=== PATIENT | female | born 1935 | race Caucasian/White ===

== ENCOUNTER → 2017-01-26 | Outpatient (CLI) | payer MEDICARE ==
[~2017-01-26] MED LIST: ASPIRIN 81M81 MG/TA2 PO; EPA/GLA1 SGL PO; FOSAMAX 70MG TA70 MG PO; LEVOTHYROXINE PO; MULTIPLE VITAMI1 CAP PO; NORCO 325 MG-51 TAB PO; NORCO 325 MG-7.1 TAB PO; VITAMIN D31000 IU PO; ZOCOR 20MG20 MG PO; ZOCOR5 MG PO
== END ==
LOC: MC.RAD 10:00
DX: Z12.31 Encounter for screening mammogram for malignant neoplasm of breast (principal)

== ENCOUNTER → 2018-01-31 | Outpatient (CLI) | payer MEDICARE | LOC: MC.RAD 11:04 | DX: Z12.31 Encounter for screening mammogram for malignant neoplasm of breast (principal); Z92.3 Personal history of irradiation ==

== ENCOUNTER → 2019-02-02 | Outpatient (CLI) | payer MEDICARE | LOC: MC.RAD 07:15 | DX: Z12.31 Encounter for screening mammogram for malignant neoplasm of breast (principal) ==

== ENCOUNTER → 2019-02-09 | Outpatient (CLI) | payer MEDICARE | LOC: MC.RAD 10:40 | DX: R92.8 Other abnormal and inconclusive findings on diagnostic imaging of breast (principal) | CPT/HCPCS: G0279 ==

== ENCOUNTER → 2020-02-15 | Outpatient (CLI) | payer MEDICARE | LOC: MC.RAD 08:54 | DX: Z12.31 Encounter for screening mammogram for malignant neoplasm of breast (principal) ==

== ENCOUNTER 2020-05-29 09:05 | Outpatient (CLI) | payer MEDICARE ==
[2020-05-29] VITALS (16 sets, daily range): BP systolic 120–177; BP diastolic 60–81; PULSE 57–72
[~2020-05-29] VITALS: Ht 162.6 cm; Wt 70.6 kg
[~2020-05-29 09:05] MED LIST changes: +CALCIUM CARBON650 M2 PO; +CALCIUM-MAGNES1 EAC1 PO; +COZAAR 50MG50 MG/TAB PO; +EPA FISH OIL1 SGL PO; -EPA/GLA1 SGL PO; -LEVOTHYROXINE PO; +MULTIPLE VITAMI1 TA5 PO; +SYNTHROID0.1 MG/TAB PO; +VITAMIN C500 MG PO
--- NOTE | 2020-05-29 10:35 | NUR ---
pt to ct per ambulation. Monitors applied. O2 on. Pt positioned in supine position.
--- NOTE | 2020-05-29 10:45 | NUR ---
Dr Mendosa and Dr Rodriguez into look at films.
--- NOTE | 2020-05-29 11:00 | NUR ---
Pt repositioned to prone per doctors request.
--- NOTE | 2020-05-29 12:45 | NUR ---
Pt ready for discharge per Dr. Mendosa. Pt doing well without any complaints at this time. ls are clear bilat. no pain reported. pt ambulatory in unit with steady gait. iv dc'd with cath intact. I reviewed dc instructions with pt who denied any questions. pt is escorted to exit via wheelchair.
== END 2020-05-29 13:17 | disposition home or self-care (01) ==
LOC: COL.RAD 09:05
DX: R91.8 Other nonspecific abnormal finding of lung field (principal); Z85.118 Personal history of other malignant neoplasm of bronchus and lung
CPT/HCPCS: J2250; J3010

== ENCOUNTER → 2021-02-25 | Outpatient (CLI) | payer MEDICARE ==
[~2021-02-25] MED LIST changes: +ANUSOL HC CREAM30 GM TP; +NITROSTAT0.4 MG/TAB SL; +OS-CAL 500 + D1 TAB PO
== END ==
LOC: MC.RAD 10:15
DX: Z12.31 Encounter for screening mammogram for malignant neoplasm of breast (principal)

== ENCOUNTER → 2021-02-26 | Outpatient (CLI) | payer MEDICARE | LOC: MC.RAD 10:51 | DX: Z12.31 Encounter for screening mammogram for malignant neoplasm of breast (principal) ==

== ENCOUNTER → 2021-03-31 | Outpatient (CLI) | payer MEDICARE | LOC: COL.RAD 08:44 | DX: K57.92 Diverticulitis of intestine, part unspecified, without perforation or abscess without bleeding (principal) ==

== ENCOUNTER → 2021-04-08 | Outpatient (CLI) | payer MEDICARE | LOC: COL.RAD 04-07 09:30 | DX: K57.32 Diverticulitis of large intestine without perforation or abscess without bleeding (principal); K57.92 Diverticulitis of intestine, part unspecified, without perforation or abscess without bleeding ==

== ENCOUNTER 2021-05-12 14:39 | Outpatient (CLI) | payer MEDICARE ==
[~2021-05-12] VITALS: Ht 162.6 cm; Wt 61.3 kg
[2021-05-12] VITALS (8 sets, daily range): BP systolic 134–158; BP diastolic 59–73; PULSE 60–70; TEMP 96.8
[~2021-05-12 14:39] MED LIST changes: -ANUSOL HC CREAM30 GM TP; -NITROSTAT0.4 MG/TAB SL; -OS-CAL 500 + D1 TAB PO
[2021-05-12] MEDS ORDERED: OS-CAL 500 + D1 TAB PO (14:47)
[2021-05-12] MEDS ORDERED: NITROSTAT0.4 MG/TAB SL (14:48)
[2021-05-12] MEDS ORDERED: ANUSOL HC CREAM30 GM TP (14:50)
--- NOTE | 2021-05-12 16:35 | NUR ---
Pt tolerated infusion and 1 hr obs period without issue. INT DC'd and pt was escorted out to ED entrance.
== END 2021-05-12 16:35 | disposition home or self-care (01) ==
LOC: EUO 14:39
DX: U07.1 COVID-19 (principal)
CPT/HCPCS: M0243; Q0244

== ENCOUNTER 2021-08-02 23:07 | Inpatient (IN) | payer MEDICARE ==
[~2021-08-02] VITALS: Ht 162.6 cm; Wt 61.9 kg
[~2021-08-02 23:07] MED LIST changes: +ANUSOL HC CREAM30 GM TP; +NITROSTAT0.4 MG/TAB SL; +OS-CAL 500 + D1 TAB PO
[2021-08-03] VITALS (13 sets, daily range): BP systolic 113–166; BP diastolic 42–65; PULSE 53–71; TEMP 97.5–98.1
[2021-08-03] MEDS ORDERED: MASON NATURAL2000 IU PO (00:08)
[2021-08-03 00:10] LABS: COLLECTION METHOD CATHETER
[2021-08-03] MEDS ORDERED: GALZIN50 MG PO (00:10)
[2021-08-03] MEDS ORDERED: MAGNESIUM (00:10)
[2021-08-03] MEDS ORDERED: CALCIUM (00:10)
[2021-08-03] MEDS ORDERED: MAG-OX 400400 MG/TAB PO (00:11)
[2021-08-03] MEDS ORDERED: VITAMIN B COMPL1 SGL PO (00:11)
[2021-08-03 00:13] LABS: BASO % 0.4 % (0.0-2.0); EOS # 0.1 K/mm3 (0.0-0.7); EOS % 1.7 % (0.0-4.0); GRAN # 6.1 K/mm3 (1.4-6.5); GRAN % 75.3 % (42.2-75.2); HEMOGLOBIN 11.8 g/dl (12.5-16.0); LYMPH # 1.2 K/mm3 (1.2-3.4); LYMPH % 14.4 % (20.0-51.0); MEAN CELL VOLUME 90 fl (80.0-100.0); MEAN CORPUSCULAR HEMOGLOBIN 29 pg (27-31); MEAN CORPUSCULAR HGB CONC 32 g/dl (33.0-37.0); MEAN PLATELET VOLUME 8.8 fl (7.4-10.4); MONO # 0.6 K/mm3 (0.1-0.6); MONO % 7.6 % (1.7-9.3); PLATELET COUNT 189 K/mm3 (130-400); RED BLOOD COUNT 4.08 M/mm3 (4.10-5.30); REDCELL DISTRIBUTION WIDTH-CV 13.6 % (11.5-14.5)
[2021-08-03 00:14] LABS: HEMATOCRIT 36.5 % (37.0-47.0)
[2021-08-03 00:15] LABS: PH 7 (5-8); SQUAMOUS EPITHELIAL None Seen /hpf (0-10); URINE APPEARANCE Clear (CLEAR/HAZY); URINE BACTERIA None Seen /hpf (NONE SEEN); URINE BILIRUBIN Negative (NEGATIVE); URINE BLOOD Negative (NEGATIVE); URINE COLOR Straw (YELLOW); URINE GLUCOSE Negative (NEGATIVE); URINE KETONE Negative (NEGATIVE); URINE LEUKOCYTE ESTERASE Negative (NEGATIVE); URINE NITRATE Negative (NEGATIVE); URINE PROTEIN(semi-quant) Negative (NEGATIVE); URINE RBC 0-2 /hpf (0-2); URINE UROBILINOGEN Negative (NEGATIVE)
[2021-08-03 00:30] LABS: ALANINE AMINOTRANSFERASE 8 U/L (0-55); ALBUMIN 3.5 gm/dL (3.4-4.8); ALKALINE PHOSPHATASE 80 U/L (40-150); ANION GAP 11 mmol/L (7-16); AST,SGOT 18 U/L (5-34); BLOOD UREA NITROGEN 29 mg/dL (10-20); CALCIUM 9.6 mg/dL (8.4-10.2); CARBON DIOXIDE 26 mmol/L (23-31); CHLORIDE 102 mmol/L (98-107); GLUCOSE 105 mg/dL (70-99); POTASSIUM 4.2 mmol/L (3.5-4.5); SODIUM 139 mmol/L (136-145); TOTAL PROTEIN 6.6 gm/dL (6.2-8.1)
[2021-08-03 00:38] LABS: INR 1.1 (0.8-3.0); PROTHROMBIN TIME 11.8 SECONDS (9.7-12.8)
[2021-08-03 00:41] LABS: BILIRUBIN,TOTAL < 0.5 mg/dL (0.2-1.2)
--- NOTE | 2021-08-03 01:51 | NUR ---
Almaz ALEXANDER CALLED ET NOTIFIED OF PT CONSULT. PT ARRIVES VIA ER CART, TRANSFERRED TO BED WITH 3 ASSIST ET SLIDE BOARD. PT YELLS OUT IN PAIN WHEN MOVED, STATES THAT PAIN INCREASED TO 7. PT QUICKLY CALMS DOWN ET IS PLEASANT, A&O X3. SCD APPLIED TO UNAFFECTED LEG. RIBERA CATHETER DRAINING DEPENDENTLY. PT EDUCATED ON FALL PRECAUTIONS, CALL LIGHT ET NPO ORDER. PT VERBALIZES UNDERSTANDING, DENIES OTHER NEEDS. PT TURNS TV ON, CALL LIGHT IS WITHIN REACH.
--- NOTE | 2021-08-03 09:30 | NUR ---
Ortho Dr Epperson have been in to see pt. Pt is cleared for surgery. Edilberto notified. Pt states that her hip is not too bad at this time, but her back is bothering her. Repositioned slightly, pain medication given. Pts is at bedside. Pt is aware meliton she will be having surgery this am, consent signed. All other questions answered, call light within reach
--- NOTE | 2021-08-03 10:06 | NUR ---
Pt off the floor for surgery at this time
--- NOTE | 2021-08-03 10:32 | NUR ---
Sw tried to complete intake, pt in surgery.
--- NOTE | 2021-08-03 13:10 | NUR ---
Pt back from surgery. She is drowsy, but does wake easily when spoken to. DRSG x2 to her left hip, CDI, with ice pack in place. Pt at the bedside. Pt has no complaints of pain at this time. She is able to wiggle her feet. Denies wanting anything to eat at this time. Call light within reach
--- NOTE | 2021-08-03 13:55 | NUR ---
Pt continues to do well with no pain complaints. Pt requested to be repositioned to her right side. Assisted at this time and she stated that she was more comfortable this way. No other needs verbalized, will continue to monitor
--- NOTE | 2021-08-03 15:26 | NUR ---
Pt continues to do well with no pain complaints. Pt is resting comfortably, but does wake easily when spoken to. remains at bedside
--- NOTE | 2021-08-03 18:03 | NUR ---
Pt has continued to sleep since arriving back from surgery. She does wake easily, but does fall back asleep. She is tolerating ice water, but does not stay awake long enough to eat anything. Pt reports that her pain is comfortable at this time
--- NOTE | 2021-08-03 20:35 | NUR ---
PT SITTING UP IN BED EATING SANDWICH ET COOKIE. PT HAS TOLERATED CLEAR LIQUIDS WELL WITH NO NAUSEA, DIET WAS ADVANCED. PT WAS GIVEN PAIN MEDICATION EARLIER ET STATES THAT SHE NOW HAS NO PAIN @ REST. PT IS ALERT, ORIENTED TO PLACE ET REASON FOR HOSPITALIZATION BUT STATES THAT SHE DOES NOT REMEMBER HAVING SURGERY. DRESSING IN PLACE TO LEFT HIP, FRESH ICE PACK APPLIED. OXYGEN ON @ 1L VIA NC, RESPIRATIONS UNLABORED. BED ALARM ON, CALL LIGHT WITHIN REACH.
--- NOTE | 2021-08-04 05:47 | NUR ---
PT'S OXYGEN VIA NC IS TAKEN OFF, WAS ON 1L. OXYGEN SATS MAINTAIN @ 96% ON RA. PT DENIES PAIN IN HER LEFT LEG BUT STATES THAT SHE IS HAVING PAIN IN HER STOMACH ET POINTS TO HER UPPER EPIGASTRIC AREA. PT STATES SHE HAS THIS PAIN FREQUENTLY. WHEN ASKED HOW LONG THIS HAS BEEN HAPPENING, PT STATES "A WHILE". PT ALSO HAS BELCHING WITH THIS PAIN. PT ENCOURAGED TO DRINK WATER. DENIES OTHER NEEDS, RESPIRATIONS UNLABORED. BED ALARM ON, CALL LIGHT WITHIN REACH.
[2021-08-04 06:24] LABS: HEMOGLOBIN 11.1 g/dl (12.5-16.0)
[2021-08-04 06:26] LABS: HEMATOCRIT 35.3 % (37.0-47.0)
[2021-08-04 08:28] VITALS: BP 145/48; PULSE 70; TEMP 97.7
--- NOTE | 2021-08-04 10:31 | NUR ---
HUGH met with the patient to discuss discharge plan. The patient lives in [place] with her , Mingo (h.ph#[phone], c.ph#[phone]). She reports independence with ADLs and does not have any DME. The patient's PCP is Dr. Michael Pinto at [facility] and she receives her medications through [employer] The patient does not have a DPOA-HC in EMR, but she states that she does have one completed and that she designated her son, Jhonny. She states that [facility] may have a copy of the document. HUGH attempted to contact Dona, aids social worker, at [facility] to inquire if they have a copy. HUGH left her a voicemail. The patient had a hip fracture and had surgery yesterday. HUGH discussed post-acute rehab upon discharge. The patient reports that her has to go up to [facility] for outpatient therapy, so she would prefer their swing bed. She did not have a second preference at this time and states that she needs some time to think about it and talk to her . HUGH then contacted Cecilia at [facility]. Cecilia reports that they are full and not taking any admissions. She recommended that the patient look at a different facility. HUGH met with the patient and updated her on this. HUGH provided her with Medicare.gov's list of SNFs around the [place] area. The patient reports that she has heard good things about [facility] and was agreeable for HUGH to send a referral to [facility]. She would stil like to be able to talk to her about the other facilities. HUGH contacted and faxed a referral to Diamond at [facility]. Awaiting screen. *Discharge plan: post-acute rehab. Awaiting acceptance*
--- NOTE | 2021-08-04 11:20 | NUR ---
PATIENT ASSESSMENT PERFORMED. PATIENT ALERT AND ORIENTED X3 AND EXHIBITING SOME FORGETFULLNESS. PATIENT GIVEN MORNING MEDICATIONS. PATIENT STATES PAIN IS AT 6/10. PATIENT GIVEN NORCO AT 0845. PATIENT'S SURGICAL SITES ARE CLEAN AND COVERED WITH GAUZE. ICE PACK APPLIED. PATIENT'S VSS STABLE.
--- NOTE | 2021-08-04 11:35 | NUR ---
Diamond, at [facility], reports that they are able to accept the patient for a skilled stay.
--- NOTE | 2021-08-04 12:20 | NUR ---
First visit from the technical proposal writer. No needs right now.
[2021-08-04 12:30] VITALS: BP 122/58; PULSE 55; TEMP 97.4
--- NOTE | 2021-08-04 12:50 | NUR ---
SW received the patient's DPOA-HC, via fax. SW placed the document in the patient's chart. The patient's DPOA-HC is her . The alternate is her son, Jhonny.
[2021-08-04 16:11] VITALS: BP 149/58; PULSE 64; TEMP 97.5
--- NOTE | 2021-08-04 17:25 | NUR ---
PATIENT COMPLAINED OF PAIN, RATING IT AT A 10. PATIENT REQUESTED PAIN MEDICATION. PATIENT INFORMED OF THE RIBERA BEING DC'D. PATIENT STATED SHE DID NOT WANT PAIN MEDICATION. PATIENT REQUESTED TYLENOL. GIVEN TYLENOL AT 1600. RIBERA DC'D AT 1600. PATIENT TOLERATED WELL. INSTRUCTED TO CALL FOR HELP TO THE BATHROOM. PATIENT WAS REPOSITIONED AND IS RESTING IN BED WAITING FOR DINNER TO ARRIVE WITH CALL LIGHT NEAR.
--- NOTE | 2021-08-04 19:50 | NUR ---
Bedside shift report received, assumed care for lieutenant shift supervisor. Assessment complete. A&Ox4. Denies pain/nausea/shortness of breath. VS remain stable. Dressing to left hip [id number]. SCD/TEDs bilat. Refusing ice pack. Due to void post barriga removal. Plan of care discussed for this shift to include meds/calling for pain/calling for questions/concerns. Verbalizes understanding. Call light in reach. Will monitor.
[2021-08-04 20:10] VITALS: BP 153/62; PULSE 67; TEMP 97.7
--- NOTE | 2021-08-04 21:44 | NUR ---
Up to bedside commode to void for first time post barriga removal. Voided without difficulty. Will monitor.
[2021-08-05 00:18] VITALS: BP 141/50; PULSE 62; TEMP 97.7
--- NOTE | 2021-08-05 00:30 | NUR ---
Resting eyes closed. No s/s of pain noted.
[2021-08-05 04:29] VITALS: BP 151/56; PULSE 64; TEMP 97.7
[2021-08-05 06:27] LABS: BASO % 0.4 % (0.0-2.0); EOS # 0.2 K/mm3 (0.0-0.7); GRAN % 77.2 % (42.2-75.2); HEMOGLOBIN 10.5 g/dl (12.5-16.0); LYMPH # 0.8 K/mm3 (1.2-3.4); LYMPH % 10.5 % (20.0-51.0); MEAN CELL VOLUME 93 fl (80.0-100.0); MEAN CORPUSCULAR HEMOGLOBIN 29 pg (27-31); MEAN CORPUSCULAR HGB CONC 31 g/dl (33.0-37.0); MEAN PLATELET VOLUME 9.7 fl (7.4-10.4); MONO # 0.7 K/mm3 (0.1-0.6); MONO % 8.5 % (1.7-9.3); PLATELET COUNT 174 K/mm3 (130-400); RED BLOOD COUNT 3.67 M/mm3 (4.10-5.30); REDCELL DISTRIBUTION WIDTH-CV 13.4 % (11.5-14.5)
[2021-08-05 06:36] LABS: HEMATOCRIT 34.1 % (37.0-47.0)
[2021-08-05 06:43] LABS: CREATININE, serum 0.85 mg/dL (0.57-1.11); POTASSIUM 4.3 mmol/L (3.5-4.5)
[2021-08-05] MEDS ORDERED: SENOKOT S 50 MG1 TAB PO (08:07)
[2021-08-05] MEDS ORDERED: DULCOLAX S10 MG/SUPP RC (08:07)
[2021-08-05] MEDS ORDERED: ASPI325T6 PO (08:07)
[2021-08-05] MEDS ORDERED: TYLENOL 500MG500 MG PO (08:07)
[2021-08-05] MEDS ORDERED: OSCAL 500 TAB500 MG PO (08:07)
[2021-08-05 08:41] VITALS: BP 146/80; PULSE 70; TEMP 97.5
[2021-08-05] MEDS ORDERED: IPRATROPIUM BROM3 M1 IH ×2 (08:49)
[2021-08-05] MEDS ORDERED: NATURAL IRON65 MG PO (08:50)
[2021-08-05] MEDS ORDERED: NORCO 325 MG-51 TAB PO (08:52)
--- NOTE | 2021-08-05 09:43 | NUR ---
The clinical team is ready to discharge the patient today. HUGH notified and faxed updates to Diamond at [facility]. Diamond reports that they are able to waive the three midnight rule and accept the patient today and transportation was set up at 1130. HUGH attempted to contact the patient's on both phone numbers. Both numbers went to [facility], but his voicemails had not been set up yet. HUGH was unable to leave a message. HUGH met with the patient and updated her on the above. The patient is agreeable with going to [facility]. She reports that she already let her know and that he is probably on his way to the hospital now, that is why he is not answering his phone. The patient is to discharge today, 08/05, to [facility] for a skilled stay. Transportation was scheduled at 1130, via [facility]. No additional needs at this time.
--- NOTE | 2021-08-05 12:07 | NUR ---
REPORT TO ADEN NASCIMENTO. PT LEFT UNIT WITH [facility].
== END 2021-08-05 11:30 | DRG 482 ==
LOC: COL.ER 23:07 → SURG 08-03 00:27
PROVIDERS: Nurse Practitioner Primary Care; Orthopaedic Surgery; Physician Assistant; ADMIT Internal Medicine
PROC: 0QH734Z Insertion of Internal Fixation Device into Left Upper Femur, Percutaneous Approach (ICD-10-PCS; principal; 2021-08-03 11:30)
DX: S72.142A Displaced intertrochanteric fracture of left femur, initial encounter for closed fracture (principal); I10 Essential (primary) hypertension; E03.9 Hypothyroidism, unspecified; D64.9 Anemia, unspecified; W18.30XA Fall on same level, unspecified, initial encounter; Y93.89 Activity, other specified; Y92.003 Bedroom of unspecified non-institutional (private) residence as the place of occurrence of the external cause; Z20.822 Contact with and (suspected) exposure to COVID-19; Z85.3 Personal history of malignant neoplasm of breast; Z85.118 Personal history of other malignant neoplasm of bronchus and lung; Z87.891 Personal history of nicotine dependence
CPT/HCPCS: 99222-AI; 99232-AI; 99233-AI; 99239; C1713; J0690; J2250; J2270; J2704; J2795; J2920; J7030

== ENCOUNTER 2021-11-23 10:32 | Emergency (ER) | payer MEDICARE ==
[~2021-11-23] VITALS: Ht 165.1 cm; Wt 55.9 kg
[~2021-11-23 10:32] MED LIST changes: +ASPI325T6 PO; +CALCIUM; +DULCOLAX S10 MG/SUPP RC; +GALZIN50 MG PO; +IPRATROPIUM BROM3 M1 IH; +MAG-OX 400400 MG/TAB PO; +MAGNESIUM; +MASON NATURAL2000 IU PO; +NATURAL IRON65 MG PO; +OSCAL 500 TAB500 MG PO; +SENOKOT S 50 MG1 TAB PO; +TYLENOL 500MG500 MG PO; +VITAMIN B COMPL1 SGL PO
[2021-11-23 10:37] VITALS: TEMP 98
[2021-11-23 11:24] LABS: BASO % 0.4 % (0.0-2.0); EOS # 0.1 K/mm3 (0.0-0.7); EOS % 1.1 % (0.0-4.0); GRAN # 7.2 K/mm3 (1.4-6.5); GRAN % 78.7 % (42.2-75.2); HEMOGLOBIN 11.5 g/dl (12.5-16.0); LYMPH # 1.1 K/mm3 (1.2-3.4); LYMPH % 11.8 % (20.0-51.0); MEAN CELL VOLUME 89 fl (80.0-100.0); MEAN CORPUSCULAR HEMOGLOBIN 29 pg (27-31); MEAN CORPUSCULAR HGB CONC 32 g/dl (33.0-37.0); MEAN PLATELET VOLUME 8.7 fl (7.4-10.4); MONO # 0.7 K/mm3 (0.1-0.6); MONO % 7.8 % (1.7-9.3); PLATELET COUNT 242 K/mm3 (130-400); RED BLOOD COUNT 4.01 M/mm3 (4.10-5.30); REDCELL DISTRIBUTION WIDTH-CV 13.5 % (11.5-14.5)
[2021-11-23 11:26] LABS: HEMATOCRIT 35.7 % (37.0-47.0)
[2021-11-23 11:29] LABS: COLLECTION METHOD CLEAN CATCH
[2021-11-23 11:38] LABS: MUCOUS Present (NOT PRESENT); PH 6 (5-8); URINE APPEARANCE Hazy (CLEAR/HAZY); URINE BACTERIA Occasional /hpf (NONE SEEN); URINE BILIRUBIN Negative (NEGATIVE); URINE BLOOD Negative (NEGATIVE); URINE COLOR Yellow (YELLOW); URINE GLUCOSE Negative (NEGATIVE); URINE KETONE Negative (NEGATIVE); URINE LEUKOCYTE ESTERASE 2+ (NEGATIVE); URINE NITRATE Negative (NEGATIVE); URINE PROTEIN(semi-quant) Negative (NEGATIVE); URINE RBC 0-2 /hpf (0-2); URINE UROBILINOGEN Negative (NEGATIVE)
[2021-11-23 11:45] LABS: ALBUMIN 3.2 gm/dL (3.4-4.8); ALKALINE PHOSPHATASE 76 U/L (40-150); ANION GAP 11 mmol/L (7-16); AST,SGOT 12 U/L (5-34); BILIRUBIN,TOTAL 0.6 mg/dL (0.2-1.2); BLOOD UREA NITROGEN 22 mg/dL (10-20); CALCIUM 9.4 mg/dL (8.4-10.2); CARBON DIOXIDE 25 mmol/L (23-31); CHLORIDE 97 mmol/L (98-107); CREATININE, serum 1.11 mg/dL (0.57-1.11); GLUCOSE 94 mg/dL (70-99); POTASSIUM 4.5 mmol/L (3.5-4.5); SODIUM 133 mmol/L (136-145); TOTAL PROTEIN 6.4 gm/dL (6.2-8.1)
[2021-11-23 11:51] LABS: TROPONIN-I 0.012 ng/mL (0.00-0.033)
[2021-11-23 12:03] LABS: ALANINE AMINOTRANSFERASE < 6 U/L (0-55)
[2021-11-23] MEDS ORDERED: CEPHALEXIN500 M1 PO (12:30)
[2021-11-23 12:53] VITALS: BP 126/67; PULSE 56
[2021-11-24] MEDS ORDERED: CLARITIN 1010 MG/TAB PO (16:39)
== END 2021-11-23 12:55 | disposition home or self-care (01) ==
LOC: COL.ER 10:32
PROVIDERS: Emergency Medicine
DX: N39.0 Urinary tract infection, site not specified (principal); E86.0 Dehydration; D64.9 Anemia, unspecified; E87.1 Hypo-osmolality and hyponatremia
CPT/HCPCS: J7040

== ENCOUNTER 2021-11-24 15:22 | Emergency (ER) | payer MEDICARE ==
[~2021-11-24] VITALS: Ht 162.6 cm; Wt 56.4 kg
[~2021-11-24 15:22] MED LIST changes: +CEPHALEXIN500 M1 PO
[2021-11-24 15:29] VITALS: TEMP 97
[2021-11-24 16:03] LABS: BASO % 0.5 % (0.0-2.0); EOS # 0.1 K/mm3 (0.0-0.7); EOS % 0.9 % (0.0-4.0); GRAN # 6.4 K/mm3 (1.4-6.5); HEMATOCRIT 34.8 % (37.0-47.0); HEMOGLOBIN 11.4 g/dl (12.5-16.0); LYMPH # 0.9 K/mm3 (1.2-3.4); LYMPH % 10.8 % (20.0-51.0); MEAN CELL VOLUME 88 fl (80.0-100.0); MEAN CORPUSCULAR HEMOGLOBIN 29 pg (27-31); MEAN CORPUSCULAR HGB CONC 33 g/dl (33.0-37.0); MEAN PLATELET VOLUME 8.4 fl (7.4-10.4); MONO # 0.7 K/mm3 (0.1-0.6); MONO % 8.6 % (1.7-9.3); PLATELET COUNT 223 K/mm3 (130-400); RED BLOOD COUNT 3.97 M/mm3 (4.10-5.30); REDCELL DISTRIBUTION WIDTH-CV 13.7 % (11.5-14.5)
[2021-11-24 16:22] LABS: ALBUMIN 3.2 gm/dL (3.4-4.8); ALKALINE PHOSPHATASE 72 U/L (40-150); ANION GAP 10 mmol/L (7-16); AST,SGOT 11 U/L (5-34); BILIRUBIN,TOTAL 0.5 mg/dL (0.2-1.2); BLOOD UREA NITROGEN 25 mg/dL (10-20); CALCIUM 9.4 mg/dL (8.4-10.2); CARBON DIOXIDE 27 mmol/L (23-31); CHLORIDE 98 mmol/L (98-107); CREATININE, serum 1.39 mg/dL (0.57-1.11); GLUCOSE 100 mg/dL (70-99); POTASSIUM 4.4 mmol/L (3.5-4.5); SODIUM 135 mmol/L (136-145); TOTAL PROTEIN 6.5 gm/dL (6.2-8.1)
[2021-11-24 16:23] LABS: ALANINE AMINOTRANSFERASE < 6 U/L (0-55)
[2021-11-24] MEDS ORDERED: CLARITIN 1010 MG/TAB PO (16:39)
[2021-11-24 17:49] VITALS: BP 152/76; PULSE 60
--- NOTE | 2021-11-25 17:00 | NUR ---
HUGH contacted patient to follow up on ER visit. Patient verbalized that she is "doing fine" since visit but her feels like they need help in the home. She states that they have a follow up appointment with on at 0900. Message left with HUGH Carcamo at PCP office about the patient and to follow up on HH services. Patient was seen in this facility earlier this year and was discharged to [facility] SN[facility]. Patient reports that after discharge from [facility], she didn't go home with HH services. Contact made with [facility] who states that the patient was discharged home with [facility] HH services.
== END 2021-11-24 17:53 | disposition home or self-care (01) ==
LOC: COL.ER 15:22
PROVIDERS: Personal Emergency Response Attendant
DX: E86.0 Dehydration (principal); R03.0 Elevated blood-pressure reading, without diagnosis of hypertension
CPT/HCPCS: J7030

== ENCOUNTER 2021-12-04 12:02 | Observation (INO) | payer MEDICARE ==
[~2021-12-04] VITALS: Ht 162.6 cm; Wt 57.6 kg
[2021-12-04] VITALS (7 sets, daily range): BP systolic 95–180; BP diastolic 49–75; PULSE 49–76; TEMP 97.3–98.7
[~2021-12-04 12:02] MED LIST changes: +CLARITIN 1010 MG/TAB PO
[2021-12-04 12:50] LABS: BASO % 0.5 % (0.0-2.0); EOS # 0.1 K/mm3 (0.0-0.7); EOS % 1.4 % (0.0-4.0); GRAN # 6.1 K/mm3 (1.4-6.5); HEMOGLOBIN 10.8 g/dl (12.5-16.0); LYMPH # 1.4 K/mm3 (1.2-3.4); LYMPH % 17.1 % (20.0-51.0); MEAN CELL VOLUME 88 fl (80.0-100.0); MEAN CORPUSCULAR HEMOGLOBIN 29 pg (27-31); MEAN CORPUSCULAR HGB CONC 33 g/dl (33.0-37.0); MEAN PLATELET VOLUME 8.3 fl (7.4-10.4); MONO # 0.7 K/mm3 (0.1-0.6); MONO % 8.8 % (1.7-9.3); PLATELET COUNT 237 K/mm3 (130-400); RED BLOOD COUNT 3.75 M/mm3 (4.10-5.30)
[2021-12-04 12:52] LABS: HEMATOCRIT 32.9 % (37.0-47.0)
[2021-12-04 13:15] LABS: ALBUMIN 3.2 gm/dL (3.4-4.8); BILIRUBIN,TOTAL 0.5 mg/dL (0.2-1.2); CALCIUM 9.5 mg/dL (8.4-10.2); CREATININE, serum 1.5 mg/dL (0.57-1.11); POTASSIUM 4.6 mmol/L (3.5-4.5); TOTAL PROTEIN 6.2 gm/dL (6.2-8.1)
--- NOTE | 2021-12-04 19:03 | NUR ---
Patient arrived from ED in wheelchair. Ambulated with standby assist to bed. Changed into yellow fall alert wear. Ambulated with staff standby to bathroom and back. Vitals obtained, assessment performed. Patient oriented to room. No complaints of pain. Meal ordered, and patient resting in bed.
[2021-12-04 21:11] LABS: COLLECTION METHOD CLEAN CATCH
[2021-12-04 21:18] LABS: MUCOUS Present (NOT PRESENT); PH 7 (5-8); SQUAMOUS EPITHELIAL None Seen /hpf (0-10); URINE APPEARANCE Clear (CLEAR/HAZY); URINE BACTERIA None Seen /hpf (NONE SEEN); URINE BILIRUBIN Negative (NEGATIVE); URINE BLOOD Negative (NEGATIVE); URINE COLOR Yellow (YELLOW); URINE GLUCOSE Negative (NEGATIVE); URINE KETONE Negative (NEGATIVE); URINE LEUKOCYTE ESTERASE Negative (NEGATIVE); URINE NITRATE Negative (NEGATIVE); URINE PROTEIN(semi-quant) Negative (NEGATIVE); URINE RBC 0-2 /hpf (0-2); URINE UROBILINOGEN Negative (NEGATIVE)
--- NOTE | 2021-12-04 22:58 | NUR ---
PATIENT DENIES ANY DIZZINESS THIS EVENING NS FLUIDS RUNNING AT 125ML/HR. CONTINUES WITH ORTHOSTATICS BID. REMAINS ON TELE SINUS AIXA 49 PATIENT REMAINS ASYMPTOMATIC. UA SENT PENDING RESULTS. PATIENT DENIES ANY PAIN AT THIS TIME. CALL LIGHT WITHIN REACH.
[2021-12-05] VITALS (7 sets, daily range): BP systolic 120–185; BP diastolic 52–73; PULSE 47–103; TEMP 97.3–98.1
--- NOTE | 2021-12-05 05:19 | NUR ---
ASSISTED PATIENT TO BR AROUND 1230AM TOLERATED WELL NO COMPLAINT OF DIZZINESS STEADY GAIT WITH STAND BY ASSIST. UA SENT NEGATIVE PENDING ECHO THIS AM. REMAINS ON TELE SB 50. STARTED ON HEPARIN THIS EVENING FOR VTE. CONTINUING WITH IV FLUIDS. NO C/O PAIN WILL CONTINUE TO MONITOR FOR ANY CHANGES.
--- NOTE | 2021-12-05 07:30 | NUR ---
Patient laying in bed, A&Ox4. VSS. HR Bradycardic, doctor aware. IV CDI. Denies pain and discomfort. Denies dizziness. Call light within reach. Bed alarm on
[2021-12-05 08:23] LABS: CALCIUM 8.9 mg/dL (8.4-10.2); CREATININE, serum 0.97 mg/dL (0.57-1.11); MAGNESIUM 1.9 mg/dL (1.6-2.6); POTASSIUM 4.3 mmol/L (3.5-4.5)
--- NOTE | 2021-12-05 09:10 | NUR ---
SW met with patient to complete intake and discuss discharge plan. Patient states that she lives at home with her Mingo ([phone]) in [place]. Patient states that her daughter is moving in with them soon. According to patient's H&P she has a home health aid, however the patient denies having HH services. Patient reports to being independent with her ADL's and utilizes a cane to assist with mobility. Patient has no home oxygen needs. PCP is Dr. Camargo and she utilizes [facility] for perscription needs. Patient reports that she does have a DPOA-HC established and that her son is listed as her agent. Patient is planning on returning home once medically ready. Discharge plan: Home (pending PT/OT rec's)
[2021-12-05 09:12] LABS: TROPONIN-I 0.012 ng/mL (0.00-0.033); TSH w REFLEX 31.248 uIU/mL (0.350-4.940)
--- NOTE | 2021-12-05 13:45 | NUR ---
SW spoke with the patient about going home with HH for PT,OT, and ST. Patient verbalized " i'll call them when i get home". Informed the patient that we have to faxed her clinical information and orders to the HH agency and they they would call to schedule a time to get out for an evaluation. Patient distraught that she cannot get ahold of her . Attempt made to contact the patients x2 with the patient and was unsuccessful. CLinical information faxed to [facility] as this is the only HH agency that services her area. Discharge plan: Home with
--- NOTE | 2021-12-05 15:37 | NUR ---
HUGH spoke with Santy at [facility] and they are not in contract with the patients insurance. Santy states that we should try [facility]. HUGH call and spoke with Scarlet. Clinical referral faxed to [phone] and was notified that due to staffing they wouldn't be able to get out to see the patient until next week. Patient scheduled to discharge over the weekend. Discharge plan: Home with [facility].
--- NOTE | 2021-12-05 17:55 | NUR ---
Patient sitting up in the recliner, A&Ox3. VSS. IV CDI, fluids infusing. Denies pain and discomfort. Independent with feeds. Call light within reach. Chair alarm on
--- NOTE | 2021-12-05 22:49 | NUR ---
Patient assessed around 1939. Alert and oriented, and able to make needs known. Denies pain and discomfort. Peripheral IV to right AC with IV fluids running per orders. Denies dizzyness at time of assessment. In bed with call light within reach. Bed alarm on.
[2021-12-06 03:55] VITALS: BP 169/57; PULSE 51; TEMP 97.4
--- NOTE | 2021-12-06 05:37 | NUR ---
Patient has been in bed with call light within reach. SBA to the bathroom with walker. Denies dizziness. Continues on IV fluids per orders. In bed with call light within reach. Bed alarm on.
--- NOTE | 2021-12-06 07:42 | NUR ---
PATIENT IV REMOVED, BED LINENS CHANGED, GOWN CHANGED, ALARM TURNED ON AND TELE PATCHES REPLACED.
[2021-12-06 07:56] VITALS: BP 177/63; PULSE 49; TEMP 97.8
--- NOTE | 2021-12-06 08:42 | NUR ---
Patient alert & oriented, flat affect and slightly withdrawn. Patient IV dislodged this morning. Patient cleaned up, gown and linens changed, IV fluids stopped. Some complaints of discomfort on left side, ribs when breathing. Lungs clear. No other complaints of pain. Bed alarm on, tele leads replaced. No edema noted. Plan for discharge home with home health today.
[2021-12-06] MEDS ORDERED: LEVOXYL0.125 MG PO (09:29)
--- NOTE | 2021-12-06 11:46 | NUR ---
Patient dressed self, removed tele, and packed belonging with no assistance from staff or . Discharge instructions reviewed with and patient. [place] thick packets provided to patient. Patient instructed on where they can aquire more, and that all liquids need to be thickend. Home Health services to start wednesday.
--- NOTE | 2021-12-06 13:27 | NUR ---
SW informed that patient woul be discharting on this day. SW informed that patient would be utilize [facility]. SW confirmed information with patient and faxed DC documenation to agency. Agency staff contacted and informed of documentation sent and and of patient dc.
== END 2021-12-06 10:30 | disposition home health service (06) ==
LOC: COL.ER 12:02 → MEDICAL 15:52
PROVIDERS: Personal Emergency Response Attendant; ADMIT Internal Medicine
DX: I95.1 Orthostatic hypotension (principal); N17.9 Acute kidney failure, unspecified; R00.1 Bradycardia, unspecified; R53.1 Weakness; I10 Essential (primary) hypertension; E03.9 Hypothyroidism, unspecified; E46 Unspecified protein-calorie malnutrition; Z79.899 Other long term (current) drug therapy; Z79.890 Hormone replacement therapy
CPT/HCPCS: G0378; J1644; J7030

== ENCOUNTER 2021-12-26 14:08 | Emergency (ER) | payer MEDICARE ==
[~2021-12-26] VITALS: Ht 167.6 cm; Wt 55.9 kg
[~2021-12-26 14:08] MED LIST changes: +LEVOXYL0.125 MG PO
[2021-12-26 14:21] VITALS: TEMP 97.6
[2021-12-26 15:22] LABS: BASO % 0.6 % (0.0-2.0); EOS # 0.1 K/mm3 (0.0-0.7); EOS % 1.1 % (0.0-4.0); GRAN # 4.9 K/mm3 (1.4-6.5); GRAN % 70.8 % (42.2-75.2); LYMPH # 1.3 K/mm3 (1.2-3.4); LYMPH % 18.6 % (20.0-51.0); MEAN CELL VOLUME 89 fl (80.0-100.0); MEAN CORPUSCULAR HEMOGLOBIN 30 pg (27-31); MEAN CORPUSCULAR HGB CONC 33 g/dl (33.0-37.0); MEAN PLATELET VOLUME 8.6 fl (7.4-10.4); MONO # 0.6 K/mm3 (0.1-0.6); MONO % 8.6 % (1.7-9.3); PLATELET COUNT 197 K/mm3 (130-400); RED BLOOD COUNT 3.38 M/mm3 (4.10-5.30); REDCELL DISTRIBUTION WIDTH-CV 14.8 % (11.5-14.5)
[2021-12-26 15:24] LABS: HEMATOCRIT 30.2 % (37.0-47.0)
[2021-12-26 15:30] LABS: ALBUMIN 2.8 gm/dL (3.4-4.8); ALKALINE PHOSPHATASE 78 U/L (40-150); ANION GAP 11 mmol/L (7-16); AST,SGOT 13 U/L (5-34); BILIRUBIN,TOTAL 0.5 mg/dL (0.2-1.2); BLOOD UREA NITROGEN 20 mg/dL (10-20); CARBON DIOXIDE 25 mmol/L (23-31); CHLORIDE 99 mmol/L (98-107); CREATININE, serum 0.87 mg/dL (0.57-1.11); GLUCOSE 96 mg/dL (70-99); POTASSIUM 4.4 mmol/L (3.5-4.5); SODIUM 135 mmol/L (136-145); TOTAL PROTEIN 5.8 gm/dL (6.2-8.1)
[2021-12-26 15:33] LABS: ALANINE AMINOTRANSFERASE < 6 U/L (0-55)
[2021-12-26 19:06] LABS: COLLECTION METHOD CLEAN CATCH
[2021-12-26 19:16] LABS: MUCOUS Present (NOT PRESENT); PH 7 (5-8); SQUAMOUS EPITHELIAL None Seen /hpf (0-10); URINE APPEARANCE Clear (CLEAR/HAZY); URINE BACTERIA None Seen /hpf (NONE SEEN); URINE BILIRUBIN Negative (NEGATIVE); URINE BLOOD Negative (NEGATIVE); URINE COLOR Yellow (YELLOW); URINE GLUCOSE Negative (NEGATIVE); URINE KETONE Negative (NEGATIVE); URINE LEUKOCYTE ESTERASE Negative (NEGATIVE); URINE NITRATE Negative (NEGATIVE); URINE PROTEIN(semi-quant) Negative (NEGATIVE); URINE RBC 0-2 /hpf (0-2); URINE UROBILINOGEN Negative (NEGATIVE)
[2021-12-26 20:40] VITALS: BP 166/68; PULSE 54
== END 2021-12-26 20:40 | disposition home or self-care (01) ==
LOC: COL.ER 14:08
PROVIDERS: Nurse Practitioner Family
DX: E46 Unspecified protein-calorie malnutrition (principal); R53.81 Other malaise; E87.1 Hypo-osmolality and hyponatremia; E03.9 Hypothyroidism, unspecified; R00.1 Bradycardia, unspecified; Z68.1 Body mass index [BMI] 19.9 or less, adult; Z20.822 Contact with and (suspected) exposure to COVID-19
CPT/HCPCS: J7030; Q9967